=== PATIENT | male | born 1985 | race American Indian/Alaskan Native ===

== ENCOUNTER 2018-10-26 09:38 | Outpatient (CLI) | payer MEDICAID | END 2018-10-26 09:39 | disposition home or self-care (01) | LOC: ECHO 09:38 | PROVIDERS: ATTEND Internal Medicine Cardiovascular Disease | DX: Z01.810 Encounter for preprocedural cardiovascular examination (principal); I51.7 Cardiomegaly | CPT/HCPCS: 93306 ==

== ENCOUNTER 2019-03-02 06:29 | Day surgery (SDC) | payer MEDICAID ==
[2019-03-02] MEDS ORDERED: NACL 0.9% 1000 ML 1,000 ML IV SCH (07:00)
--- NOTE | 2019-03-02 08:49 | Anesthesia Consultation ---
Anesthesia Consult and Med Hx Date of service: 03/02/19 - Airway Anesthetic Teeth Evaluation: Good ROM Head & Neck: Adequate Mental/Hyoid Distance: Adequate Mallampati Class: Class II Intubation Access Assessment: Possibly Difficult - Pulmonary Exam CTA: Yes - Cardiac Exam Cardiac Exam: RRR - Pre-Operative Health Status ASA Pre-Surgery Classification: ASA3 Proposed Anesthetic Plan: MAC - Pulmonary Hx Smoking: No Hx Sleep Apnea: Yes (compliant with CPAP) - Cardiovascular System Hx Hypertension: Yes Hx Heart Attack/AMI: No (EF 40-45% on recent TTE) Hx Cardia Arrhythmia: No - Central Nervous System CVA: No Hx Back Pain: Yes - Gastrointestinal Hx Gastroesophageal Reflux Disease: No - Endocrine Hx Renal Disease: No Hx Liver Disease: No Hx Insulin Dependent Diabetes: No Hx Non-Insulin Dependent Diabetes: No Hx Thyroid Disease: No - Other Systems Hx Obesity: Yes (BMI >90) - Additional Comments Anesthesia Medical History Comments: No hx anesthetic complications (last GA in childhood). Cardiology notes on chart.
--- NOTE | 2019-03-02 08:49 | Anesthesia Day of Surgery ---
Anesthesia Day of Surgery - Day of Surgery Patient Examined: Yes Patient H&P Reviewed: Yes Patient is NPO: Yes Cardiac Clearance: Yes
[2019-03-02] MEDS ORDERED: VERSED ONE (09:42)
[2019-03-02] MEDS ORDERED: DIPRIVAN 10 MG/ML IV ONE (09:43)
[2019-03-02] MEDS ORDERED: KETALAR ONE (09:44)
--- NOTE | 2019-03-02 10:18 | Operative Report ---
PREOPERATIVE DIAGNOSIS: Super morbid obesity. POSTOPERATIVE DIAGNOSIS: Normal esophagogastroduodenoscopy. PROCEDURE: EGD with biopsies. ANESTHESIA: MAC. COMPLICATIONS: None. BIOPSIES: Antral biopsies. BLEEDING: Minimal. INDICATIONS: The patient is a super morbidly obese male who is here for a preoperative EGD. Informed consent was obtained. DESCRIPTION OF PROCEDURE: The patient was brought to the GI suite where he was placed in the left lateral decubitus position and underwent MAC anesthesia. A bite block was placed and a timeout was called. A standard adult gastroscope was inserted into the oropharynx, down the esophagus into the stomach and the first portion of the duodenum. On retroflexion view, there were no abnormalities. Antral biopsies were taken for H. pylori. With this, the air was suctioned out. The gastroscope was removed. The patient tolerated the procedure well with no immediate complications and was transferred to the PACU in stable condition. JOB# [id number] FIDEL/VERA
[2019-03-02 10:42] VITALS: BP 149/74
[2019-03-02] MEDS ORDERED: ROBINUL ONE (14:18)
[2019-03-02] MEDS ORDERED: XYLOCAINE CARDIAC IV ONE (14:18)
== END 2019-03-02 06:30 | disposition home or self-care (01) ==
LOC: GIO 06:29
PROVIDERS: ATTEND Specialist
DX: K30 Functional dyspepsia (principal); E66.01 Morbid (severe) obesity due to excess calories; I25.2 Old myocardial infarction; E78.00 Pure hypercholesterolemia, unspecified; I10 Essential (primary) hypertension; G47.30 Sleep apnea, unspecified; Z79.84 Long term (current) use of oral hypoglycemic drugs; Z79.899 Other long term (current) drug therapy; Z68.45 Body mass index [BMI] 70 or greater, adult
CPT/HCPCS: 43239; 88305; 88342; J2001; J2250; J2704; J7030

== ENCOUNTER 2019-04-27 06:02 | Inpatient (IN) | payer MEDICAID ==
--- NOTE | 2019-04-26 13:23 | Anesthesia Consultation ---
Anesthesia Consult and Med Hx Date of service: 04/26/19 - Airway Anesthetic Teeth Evaluation: Good ROM Head & Neck: Adequate Mental/Hyoid Distance: Adequate Mallampati Class: Class III Intubation Access Assessment: Possibly Difficult - Pulmonary Exam CTA: Yes - Cardiac Exam Cardiac Exam: RRR - Pre-Operative Health Status ASA Pre-Surgery Classification: ASA3 Proposed Anesthetic Plan: General - Pulmonary Hx Smoking: Yes (Former) SOB: Yes (Uses O2 prn) Hx Sleep Apnea: Yes - Cardiovascular System Hx Hypertension: Yes (x2yrs) Hx Heart Attack/AMI: No (EF 40-45% on recent TTE) Hx Cardia Arrhythmia: No - Central Nervous System CVA: No Hx Back Pain: Yes Hx Psychiatric Problems: No - Gastrointestinal Hx Gastroesophageal Reflux Disease: No - Endocrine Hx Renal Disease: No Hx Liver Disease: No Hx Insulin Dependent Diabetes: No Hx Non-Insulin Dependent Diabetes: No Hx Thyroid Disease: No - Other Systems Hx Cancer: No Hx Obesity: Yes (BMI >90) - Additional Comments Anesthesia Medical History Comments: Patient is morbidly obese with BMI 90 at 560 pounds , will use glidoscope as back up
[~2019-04-27 06:02] MED LIST: ANCEF/STERILE WATER 2 GM/20 ML 2 GM/20 ML SYRINGE IV NR; APRESOLINE IV PRN; FLAGYL 500 MG/100 ML 500 MG/100 ML BAG IV NR; LOVENOX SUB-Q NR; MORPHINE IV PRN; NORCO PO PRN; REGLAN IV PRN; TRANSDERM-SCOP TD SCH; ZOFRAN IV PRN
[2019-04-27] MEDS ORDERED: NACL BACTERIOSTATIC INFILTRATI ONE (06:31)
[2019-04-27] MEDS: LACTATED RINGERS 1,000 ML IV SCH ×3 (06:45→23:38)
[2019-04-27] MEDS ORDERED: XYLOCAINE 1% 20 mL ONE (06:50)
[2019-04-27] MEDS ORDERED: MARCAINE 0.5% INFILTRATI ONE (06:50)
--- NOTE | 2019-04-27 07:12 | Anesthesia Day of Surgery ---
Anesthesia Day of Surgery - Day of Surgery Patient Examined: Yes Patient H&P Reviewed: Yes Patient is NPO: Yes
[2019-04-27] MEDS ORDERED: DIPRIVAN 10 MG/ML IV ONE ×2 (07:25→07:26)
[2019-04-27] MEDS ORDERED: XYLOCAINE MPF 2% ONE (07:31)
[2019-04-27] MEDS ORDERED: ZEMURON IV ONE (07:34)
[2019-04-27] MEDS ORDERED: QUELICIN ONE ×3 (07:34→08:25)
[2019-04-27] MEDS ORDERED: DECADRON ONE (08:32)
[2019-04-27] MEDS ORDERED: ZOFRAN IV PRN (09:00)
[2019-04-27] MEDS ORDERED: MARCAINE-EPI 0.5%-1:200,000 INFILTRATI ONE (09:00)
[2019-04-27] MEDS ORDERED: XYLOCAINE 1% 20 mL INFILTRATI ONE (09:00)
[2019-04-27] MEDS ORDERED: DILAUDID IV PRN (09:00)
[2019-04-27] MEDS ORDERED: NACL 0.9% IR ONE ×2 (09:01)
[2019-04-27] MEDS ORDERED: BLOXIVERZ ONE (09:35)
[2019-04-27] MEDS ORDERED: ROBINUL ONE (09:35)
[2019-04-27] MEDS ORDERED: ZOFRAN ONE (09:38)
[2019-04-27] MEDS ORDERED: NACL 0.9% 1000 ML 1,000 ML ONE (10:26)
[2019-04-27] MEDS ORDERED: TORADOL ONE (10:44)
[2019-04-27] MEDS: SUBLIMAZE IV PRN ×2 (11:01→11:28)
[2019-04-27] MEDS: DILAUDID IV PRN ×3 (12:31→20:48)
[2019-04-27] MEDS: MYLICON PO PRN (12:40)
[2019-04-27 12:54] LABS: Hematocrit 41.5 % (35.5-45.6); Hemoglobin 13.9 gm/dl (11.8-15.2); Mean Corpuscular HGB Conc 33 % (32-34); Mean Corpuscular Volume 91 fl (84-94); Platelet Count 325 K/mm3 (140-440); Red Blood Count 4.55 M/mm3 (3.65-5.03); Red Cell Distribution Width 15.3 % (13.2-15.2)
[2019-04-27 13:18] LABS: Alanine Aminotransferase 20 units/L (7-56); BUN/Creatinine Ratio 13; Blood Urea Nitrogen 10 mg/dL (9-20); Hemolysis Index 72
[2019-04-27 14:15] LABS: Basophils % (Manual) 0 % (0.0-1.8); Eosinophils % (Manual) 0 % (0.0-4.3); Total Cells Counted 100
[2019-04-27 14:16] LABS: Anisocytosis Few; Platelet Estimate Consistent w Auto; Poikilocytosis Few
[2019-04-27] MEDS: TORADOL IV SCH (23:39)
[2019-04-28] MEDS: TORADOL IV SCH (05:21)
[2019-04-28] MEDS: LACTATED RINGERS 1,000 ML IV SCH (05:25)
[2019-04-28 09:03] VITALS: BP 156/95
[2019-04-28] MEDS ORDERED: LOVENOX SUB-Q SCH ×2 (10:00)
[2019-04-28 10:33] LABS: Basophils % (Auto) 0.3 % (0.0-1.8); Hematocrit 37.9 % (35.5-45.6); Hemoglobin 12.8 gm/dl (11.8-15.2); Lymphocytes # (Auto) 1.5 K/mm3 (1.2-5.4); Lymphocytes % (Auto) 17.7 % (13.4-35.0); Mean Corpuscular HGB Conc 34 % (32-34); Mean Corpuscular Volume 91 fl (84-94); Monocytes # (Auto) 0.7 K/mm3 (0.0-0.8); Monocytes % (Auto) 8.5 % (0.0-7.3); Platelet Count 359 K/mm3 (140-440); Red Blood Count 4.16 M/mm3 (3.65-5.03); Red Cell Distribution Width 15.1 % (13.2-15.2)
--- NOTE | 2019-04-28 10:45 | Discharge Summary ---
Providers - Providers Date of Admission: 04/27/19 06:02 Date of discharge: 04/28/19 Attending physician: MIR SCHAEFER 04/26/19 22:25 Physical Therapy Evaluation and Treat [CONS] Routine Comment: Reason For Exam: early ambulation Primary care physician: HERACLIO WALDEN Hospitalization Condition: Good Procedures: Lap Sleeve Disposition: DC-01 TO HOME OR SELFCARE Core Measure Documentation - Palliative Care Palliative Care/ Comfort Measures: Not Applicable - Core Measures Any of the following diagnoses?: none Exam - Constitutional Vitals: Temp Pulse Resp BP Pulse Ox 98.5 F 76 20 156/95 97 04/28/19 08:00 04/28/19 08:00 04/28/19 08:00 04/28/19 08:00 04/28/19 09:32 Plan Follow up with: MIR SCHAEFER MD [Staff Physician] - 14 Days HERACLIO WALDEN SR, MD [Primary Care Provider] - 7 Days
[2019-04-28 11:17] LABS: Alanine Aminotransferase 15 units/L (7-56); BUN/Creatinine Ratio 15; Blood Urea Nitrogen 12 mg/dL (9-20); Calcium 9.2 mg/dL (8.4-10.2); Hemolysis Index 12
[2019-04-28] MEDS: DILAUDID IV PRN (17:19)
[2019-04-28] MEDS: MYLICON PO PRN (17:20)
== END 2019-04-28 17:35 | disposition home or self-care (01) | DRG 621 ==
LOC: 3A 06:02 → 3B-SURG 12:21
PROVIDERS: ADMIT Specialist; ATTEND Specialist
PROC: 0DB64Z3 Excision of Stomach, Percutaneous Endoscopic Approach, Vertical (ICD-10-PCS; principal; 2019-04-27)
PROC: 0BQT4ZZ Repair Diaphragm, Percutaneous Endoscopic Approach (ICD-10-PCS; 2019-04-27)
DX: E66.01 Morbid (severe) obesity due to excess calories (principal); G47.30 Sleep apnea, unspecified; K44.9 Diaphragmatic hernia without obstruction or gangrene; K21.9 Gastro-esophageal reflux disease without esophagitis; I10 Essential (primary) hypertension; Z68.45 Body mass index [BMI] 70 or greater, adult; Z87.891 Personal history of nicotine dependence
CPT/HCPCS: 36415; 80053; 85007; 85025; 88307; 94760; G0378; A4217; J0330; J0360; J0690; J1100; J1170; J1650; J1885; J2405; J2704; J2710; J3010; J7030; J7120